=== PATIENT | male | born 1960 | race Caucasian/White ===

== ENCOUNTER 2024-07-02 19:30 | Emergency (ER) | payer BC, OTHER ==
[2024-07-02 20:01] LABS: BASOPHILS ABSOLUTE AUTO 0.01 K/uL (0.02-0.10); BASOPHILS PERCENT AUTO 0.1 % (0.0-0.5); EOSINOPHILS ABSOLUTE AUTO 0.02 K/uL (0.04-0.40); EOSINOPHILS PERCENT AUTO 0.3 % (1.0-5.0); HEMATOCRIT 49.1 % (40.0-54.0); HEMOGLOBIN 16.7 g/dL (13.0-18.0); LYMPHOCYTES ABSOLUTE AUTO 0.79 K/uL (1.50-4.00); LYMPHOCYTES PERCENT AUTO 11.4 % (20.0-40.0); MEAN CORPUSCULAR HEMOGLOBIN 33.7 pg (27.0-32.0); MEAN CORPUSCULAR VOLUME 99 fL (76-96); MEAN PLATELET VOLUME 10.1 fL (6.0-10.0); MONOCYTES ABSOLUTE AUTO 1.03 K/uL (0.20-0.80); MONOCYTES PERCENT AUTO 14.9 % (3.0-10.0); NEUTROPHILS ABSOLUTE AUTO 5.06 K/uL (2.00-7.50); NEUTROPHILS PERCENT AUTO 73.3 % (45.0-70.0); PLATELET COUNT,PLT 185 K/uL (150-400); RED BLOOD CELL COUNT 4.95 M/uL (4.50-6.50); WHITE BLOOD CELL COUNT,WBC 6.9 K/uL (4.0-11.0)
[2024-07-02 20:27] LABS: INFLUENZA A NAA POSITIVE (NEGATIVE); INFLUENZA B NAA NEGATIVE (NEGATIVE); RESPIRATORY SYNCYTIAL VIR NAA NEGATIVE (NEGATIVE)
[2024-07-02 20:29] LABS: CORONAVIRUS COVID-19 NAA NEGATIVE (NEGATIVE)
[2024-07-02 21:06] VITALS: BP 136/88; PULSE 76
== END 2024-07-02 20:53 | disposition home or self-care (01) ==
LOC: LB.ED 19:30
DX: J10.1 Influenza due to other identified influenza virus with other respiratory manifestations (principal)
CPT/HCPCS: 0241U; 36415; 71045; 85025; 99284